=== PATIENT | female | born 1950 | race Caucasian/White ===

== ENCOUNTER → 2017-07-04 | Day surgery (SDC) | payer OTHER ==
[~2017-07-04] VITALS: Ht 170.2 cm; Wt 57.0 kg
[~2017-07-04] MED LIST: 0.9% Sodium Chloride 1,000 ML IV PRN; CALC-3 PO; CYAN200014 PO; DIGE1TAB PO; LEVO75TA4 PO; LISI-609 PO; LISI2.5T PO; Sodium Chloride LOK Flush 10 mL Syringe IV PRN; fentaNYL-PF 50 mCg/mL 2 mL Inj IVPUSH PRN
[2017-07-04 11:54] VITALS: BP 148/89; PULSE 54; RESP 16; O2SAT 54
[2017-07-04 12:48] VITALS: BP 131/72; PULSE 56; RESP 14; O2SAT 100
[2017-07-04 12:58] VITALS: BP 135/76; PULSE 52; RESP 16; O2SAT 99
--- NOTE | 2017-07-04 21:25 | ENDO ---
[address] [address] ENDOSCOPY PROCEDURE PATIENT: REEMA JOHNSON : 1950 MR#: [id number] ADMIT: 07/04/2017 JOB ID: [id number] DATE OF SERVICE: 07/04/2017 PRIMARY PROVIDER: Elmer Vazquez MD. PROCEDURE: Colonoscopy. INDICATIONS: A 66-year-old female with a family history of colon cancer reporting for colon cancer screening. EQUIPMENT: PCF H 180 AL. SEDATION: 1. 3 mg Versed. 2. 75 mcg fentanyl. COMPLICATIONS: None identified. BOWEL PREPARATION: Fair, adequate exam. PROCEDURE INFORMATION: After the risks and benefits were explained, written and verbal informed consent was obtained. The patient was brought into the endoscopy suite and placed into the left lateral decubitus position. Sedation was achieved as above. A digital rectal examination was accomplished. Mild internal hemorrhoids noted. The scope was introduced into the rectum and advanced under direct visualization to the level of the cecum, as identified by the appendiceal orifice and ileocecal valve. The terminal ileum was briefly accessed. The scope was then slowly withdrawn to carefully examine the mucosa for any defects or lesions. Multiple direct views were made through the dentate line for exclusion of pathology. The colon was decompressed. The scope removed the patient who tolerated the procedure well. FINDINGS: No significant polyps, mass lesions, or inflammatory features identified throughout. There was no significant inflammation appreciated in the terminal ileum. ENDOSCOPIC DIAGNOSES: Visually unremarkable colonoscopy to cecum. RECOMMENDATIONS: Repeat colonoscopy five years considering family history.
== END | disposition home or self-care (01) ==
LOC: END 07:36
PROVIDERS: ATTEND Internal Medicine Gastroenterology
DX: Z12.11 Encounter for screening for malignant neoplasm of colon (principal); K64.8 Other hemorrhoids; Z80.0 Family history of malignant neoplasm of digestive organs; R00.2 Palpitations; E78.5 Hyperlipidemia, unspecified
CPT/HCPCS: 99153; G0105; G0500; J2250; J3010; J7030